=== PATIENT | female | born 1945 | race Caucasian/White ===

== ENCOUNTER 2017-06-27 07:09 | Outpatient (CLI) | payer OTHER ==
[~2017-06-27 07:09] MED LIST: AMBIEN10 MG PO; ATARAX50 MG PO; CALCIO; COZAAR50 MG; GLUCOSAMINE; HYDROCHLOROTHIAZIDE; LIPITOR40 MG PO; MULTIVITAMINS; NABUMETONE500 MG PO; PERCOCET 5/3251 TAB PO; PREVACID30 M1; ROBAXIN500 MG; SKELAXIN800 MG PO
== END 2017-06-27 08:00 | disposition home or self-care (01) ==
LOC: NUCLEAR 07:09
DX: R10.9 Unspecified abdominal pain (principal); D64.0 Hereditary sideroblastic anemia; R50.9 Fever, unspecified
CPT/HCPCS: 78802; A9556

== ENCOUNTER 2018-02-06 07:53 | Outpatient (CLI) | payer OTHER | END 2018-02-06 08:05 | disposition home or self-care (01) | LOC: SONOGRAMA 07:53 | DX: M46.90 Unspecified inflammatory spondylopathy, site unspecified (principal); M50.90 Cervical disc disorder, unspecified, unspecified cervical region; M06.4 Inflammatory polyarthropathy; M51.26 Other intervertebral disc displacement, lumbar region; M71.50 Other bursitis, not elsewhere classified, unspecified site; M75.30 Calcific tendinitis of unspecified shoulder; M19.149 Post-traumatic osteoarthritis, unspecified hand ==

== ENCOUNTER 2018-03-14 13:14 | Outpatient (CLI) | payer OTHER | END 2018-03-14 13:25 | disposition home or self-care (01) | LOC: RAD 13:14 | DX: M25.561 Pain in right knee (principal); M25.562 Pain in left knee ==

== ENCOUNTER → 2018-03-14 | Emergency (ER) | payer OTHER ==
[~2018-03-14] VITALS: Ht 157.5 cm; Wt 68.0 kg
[~2018-03-14] MED LIST changes: +ATACAND16 MG; +NEURONTIN300 MG; +SYNTHROID50 MCG
== END | disposition left against medical advice (07) ==
LOC: ER 08:59
DX: Z53.20 Procedure and treatment not carried out because of patient's decision for unspecified reasons (principal)

== ENCOUNTER 2018-03-15 13:55 | Outpatient (CLI) | payer OTHER | END 2018-03-15 14:17 | disposition home or self-care (01) | LOC: MRI 13:55 | DX: M25.561 Pain in right knee (principal) | CPT/HCPCS: 73718 ==

== ENCOUNTER 2018-08-24 09:02 | Outpatient (CLI) | payer OTHER | END 2018-08-24 14:52 | disposition home or self-care (01) | LOC: TOM 09:02 | DX: R42 Dizziness and giddiness (principal) ==

== ENCOUNTER 2018-09-03 10:11 | Outpatient (CLI) | payer OTHER | END 2018-09-03 12:17 | disposition home or self-care (01) | LOC: RAD 10:11 | DX: M46.90 Unspecified inflammatory spondylopathy, site unspecified (principal); M50.90 Cervical disc disorder, unspecified, unspecified cervical region; M06.4 Inflammatory polyarthropathy; G56.00 Carpal tunnel syndrome, unspecified upper limb; M51.26 Other intervertebral disc displacement, lumbar region; M71.50 Other bursitis, not elsewhere classified, unspecified site; M75.30 Calcific tendinitis of unspecified shoulder; M17.9 Osteoarthritis of knee, unspecified; M17.11 Unilateral primary osteoarthritis, right knee; M70.51 Other bursitis of knee, right knee; M25.241 Flail joint, right hand ==

== ENCOUNTER 2018-10-15 10:05 | Outpatient (CLI) | payer OTHER | END 2018-10-15 15:25 | disposition home or self-care (01) | LOC: RAD 10:05 | DX: I10 Essential (primary) hypertension (principal) ==

== ENCOUNTER 2018-12-07 19:01 | Emergency (ER) | payer OTHER ==
[~2018-12-07] VITALS: Ht 157.5 cm; Wt 68.0 kg
== END 2018-12-07 21:28 | disposition home or self-care (01) ==
LOC: ER 19:01
DX: R06.02 Shortness of breath (principal)

== ENCOUNTER 2019-01-19 09:32 | Outpatient (CLI) | payer OTHER | END 2019-01-19 09:41 | disposition home or self-care (01) | LOC: RAD 09:32 | DX: M75.32 Calcific tendinitis of left shoulder (principal); M19.012 Primary osteoarthritis, left shoulder ==

== ENCOUNTER 2019-01-30 09:31 | Outpatient (CLI) | payer OTHER | END 2019-01-30 09:40 | disposition home or self-care (01) | LOC: SONOGRAMA 09:31 | DX: E04.8 Other specified nontoxic goiter (principal) ==

== ENCOUNTER 2019-03-21 17:17 | Emergency (ER) | payer OTHER ==
[~2019-03-21] VITALS: Ht 157.5 cm; Wt 68.0 kg
== END 2019-03-22 00:23 ==
LOC: ER 17:17
DX: R42 Dizziness and giddiness (principal); N39.0 Urinary tract infection, site not specified

== ENCOUNTER → 2019-03-25 | Outpatient (CLI) | payer OTHER | END | disposition home or self-care (01) | LOC: RAD 16:18 | DX: M12.88 Other specific arthropathies, not elsewhere classified, other specified site (principal); M46.02 Spinal enthesopathy, cervical region; M54.89 Other dorsalgia ==

== ENCOUNTER 2019-05-04 06:38 | Emergency (ER) | payer OTHER ==
[~2019-05-04] VITALS: Ht 157.5 cm; Wt 68.0 kg
== END 2019-05-04 12:51 | disposition home or self-care (01) ==
LOC: ER 06:38
DX: R42 Dizziness and giddiness (principal)

== ENCOUNTER 2019-06-06 08:21 | Outpatient (CLI) | payer OTHER | END 2019-06-06 08:26 | disposition home or self-care (01) | LOC: MRI 08:21 | DX: I63.30 Cerebral infarction due to thrombosis of unspecified cerebral artery (principal) | CPT/HCPCS: 70551 ==

== ENCOUNTER 2019-06-18 08:26 | Outpatient (CLI) | payer OTHER | END 2019-06-18 09:01 | disposition home or self-care (01) | LOC: NUCLEAR 08:26 | DX: M46.90 Unspecified inflammatory spondylopathy, site unspecified (principal); M50.90 Cervical disc disorder, unspecified, unspecified cervical region; M06.4 Inflammatory polyarthropathy; G56.00 Carpal tunnel syndrome, unspecified upper limb; M51.26 Other intervertebral disc displacement, lumbar region; M71.50 Other bursitis, not elsewhere classified, unspecified site; M75.30 Calcific tendinitis of unspecified shoulder; R70.0 Elevated erythrocyte sedimentation rate; M25.9 Joint disorder, unspecified; M06.9 Rheumatoid arthritis, unspecified | CPT/HCPCS: 78306; A9503 ==

== ENCOUNTER 2019-08-01 08:05 | Outpatient (CLI) | payer OTHER | END 2019-08-01 15:14 | disposition home or self-care (01) | LOC: TOM 08:05 | DX: M46.90 Unspecified inflammatory spondylopathy, site unspecified (principal); M50.90 Cervical disc disorder, unspecified, unspecified cervical region; M06.4 Inflammatory polyarthropathy; G56.00 Carpal tunnel syndrome, unspecified upper limb; M51.26 Other intervertebral disc displacement, lumbar region; M71.50 Other bursitis, not elsewhere classified, unspecified site; M75.30 Calcific tendinitis of unspecified shoulder; K50.00 Crohn's disease of small intestine without complications ==

== ENCOUNTER 2019-08-02 08:48 | Outpatient (CLI) | payer OTHER | END 2019-08-02 08:52 | disposition home or self-care (01) | LOC: SONOGRAMA 08:48 | DX: M46.90 Unspecified inflammatory spondylopathy, site unspecified (principal); M50.90 Cervical disc disorder, unspecified, unspecified cervical region; M06.4 Inflammatory polyarthropathy; M51.26 Other intervertebral disc displacement, lumbar region; M71.50 Other bursitis, not elsewhere classified, unspecified site; M75.30 Calcific tendinitis of unspecified shoulder; K57.00 Diverticulitis of small intestine with perforation and abscess without bleeding; K50.00 Crohn's disease of small intestine without complications ==

== ENCOUNTER 2019-08-30 12:12 | Outpatient (CLI) | payer OTHER | END 2019-08-30 12:14 | disposition home or self-care (01) | LOC: RAD 12:12 | DX: M54.2 Cervicalgia (principal); M17.0 Bilateral primary osteoarthritis of knee ==

== ENCOUNTER 2019-09-05 14:07 | Outpatient (CLI) | payer OTHER | END 2019-09-05 14:08 | disposition home or self-care (01) | LOC: NUCLEAR 14:07 | DX: M81.0 Age-related osteoporosis without current pathological fracture (principal) ==

== ENCOUNTER 2020-01-31 08:44 | Outpatient (CLI) | payer OTHER | END 2020-01-31 09:22 | disposition home or self-care (01) | LOC: MRI 08:44 | PROVIDERS: ATTEND Specialist | DX: M17.11 Unilateral primary osteoarthritis, right knee (principal); M46.90 Unspecified inflammatory spondylopathy, site unspecified; M50.90 Cervical disc disorder, unspecified, unspecified cervical region; M06.4 Inflammatory polyarthropathy; G56.00 Carpal tunnel syndrome, unspecified upper limb; M51.26 Other intervertebral disc displacement, lumbar region; M71.50 Other bursitis, not elsewhere classified, unspecified site; M75.30 Calcific tendinitis of unspecified shoulder; M25.241 Flail joint, right hand; S83.201A Bucket-handle tear of unspecified meniscus, current injury, left knee, initial encounter | CPT/HCPCS: 73721 ==

== ENCOUNTER 2020-04-01 08:24 | Outpatient (CLI) | payer OTHER | END 2020-04-01 08:28 | disposition home or self-care (01) | LOC: SONOGRAMA 08:24 | PROVIDERS: ATTEND Specialist | DX: G56.03 Carpal tunnel syndrome, bilateral upper limbs (principal); M25.532 Pain in left wrist; M25.531 Pain in right wrist; M06.4 Inflammatory polyarthropathy; M51.26 Other intervertebral disc displacement, lumbar region; M71.50 Other bursitis, not elsewhere classified, unspecified site; M50.90 Cervical disc disorder, unspecified, unspecified cervical region; M75.30 Calcific tendinitis of unspecified shoulder; E04.1 Nontoxic single thyroid nodule ==

== ENCOUNTER 2020-08-05 09:12 | Outpatient (CLI) | payer OTHER | END 2020-08-05 09:21 | disposition home or self-care (01) | LOC: SONOGRAMA 09:12 → MAMO-SONO 09:30 | PROVIDERS: ATTEND Specialist | DX: S83.221A Peripheral tear of medial meniscus, current injury, right knee, initial encounter (principal); M71.21 Synovial cyst of popliteal space [Baker], right knee; M17.11 Unilateral primary osteoarthritis, right knee; S83.421A Sprain of lateral collateral ligament of right knee, initial encounter ==

== ENCOUNTER 2020-08-17 10:39 | Outpatient (CLI) | payer OTHER | END 2020-08-17 10:50 | disposition home or self-care (01) | LOC: MRI 10:39 | PROVIDERS: ATTEND Specialist | DX: M51.36 Other intervertebral disc degeneration, lumbar region (principal) | CPT/HCPCS: 72148 ==

== ENCOUNTER 2020-08-24 11:35 | Outpatient (CLI) | payer OTHER | END 2020-08-24 11:46 | disposition home or self-care (01) | LOC: MRI 11:35 | PROVIDERS: ATTEND Physical Medicine & Rehabilitation | DX: M17.11 Unilateral primary osteoarthritis, right knee (principal); S83.241A Other tear of medial meniscus, current injury, right knee, initial encounter | CPT/HCPCS: 73721 ==

== ENCOUNTER 2020-09-07 15:44 | Outpatient (CLI) | payer OTHER | END 2020-09-07 15:49 | disposition home or self-care (01) | LOC: MAMO-SONO 15:44 | PROVIDERS: ATTEND Physical Medicine & Rehabilitation | DX: M25.511 Pain in right shoulder (principal); M75.31 Calcific tendinitis of right shoulder ==

== ENCOUNTER 2020-10-19 07:31 | Outpatient (CLI) | payer OTHER | END 2020-10-19 07:52 | disposition home or self-care (01) | LOC: SONOGRAMA 07:31 | PROVIDERS: ATTEND Internal Medicine Gastroenterology | DX: K76.0 Fatty (change of) liver, not elsewhere classified (principal); R16.0 Hepatomegaly, not elsewhere classified ==

== ENCOUNTER 2020-12-02 10:45 | Outpatient (CLI) | payer OTHER | END 2020-12-02 10:58 | disposition home or self-care (01) | LOC: RAD 10:45 | PROVIDERS: ATTEND Physical Medicine & Rehabilitation | DX: M17.0 Bilateral primary osteoarthritis of knee (principal) ==

== ENCOUNTER 2020-12-23 13:08 | Outpatient (CLI) | payer OTHER | END 2020-12-23 14:29 | disposition home or self-care (01) | LOC: RAD 13:08 | PROVIDERS: ATTEND Internal Medicine Pulmonary Disease | DX: J01.90 Acute sinusitis, unspecified (principal); R05 Cough ==

== ENCOUNTER 2021-04-01 07:34 | Outpatient (CLI) | payer OTHER | END 2021-04-01 07:43 | disposition home or self-care (01) | LOC: SONOGRAMA 07:34 | PROVIDERS: ATTEND Internal Medicine Endocrinology, Diabetes & Metabolism | DX: I10 Essential (primary) hypertension (principal); R73.03 Prediabetes; E04.1 Nontoxic single thyroid nodule ==

== ENCOUNTER 2021-06-01 07:53 | Outpatient (CLI) | payer OTHER | END 2021-06-01 07:54 | disposition home or self-care (01) | LOC: LAB 07:53 | PROVIDERS: ATTEND Internal Medicine Cardiovascular Disease | DX: J02.8 Acute pharyngitis due to other specified organisms (principal); N39.0 Urinary tract infection, site not specified; B96.89 Other specified bacterial agents as the cause of diseases classified elsewhere ==

== ENCOUNTER 2021-08-29 13:40 | Emergency (ER) | payer OTHER ==
[~2021-08-29] VITALS: Ht 157.5 cm; Wt 68.0 kg
== END 2021-08-29 17:59 | disposition home or self-care (01) ==
LOC: ER 13:40
DX: R55 Syncope and collapse (principal); R42 Dizziness and giddiness; F41.9 Anxiety disorder, unspecified; Z86.79 Personal history of other diseases of the circulatory system

== ENCOUNTER 2021-09-03 09:49 | Outpatient (CLI) | payer OTHER ==
[2021-09-03] MEDS ORDERED: ZOFRAN8 MG PO (22:03)
[2021-09-03] MEDS ORDERED: DRAMAMINE LESS25 MG PO (22:03)
== END 2021-09-03 11:24 | disposition home or self-care (01) ==
LOC: RAD 09:49
PROVIDERS: ATTEND Specialist
DX: M26.619 Adhesions and ankylosis of temporomandibular joint, unspecified side (principal); S22.31XA Fracture of one rib, right side, initial encounter for closed fracture

== ENCOUNTER 2021-09-03 20:36 | Emergency (ER) | payer OTHER ==
[~2021-09-03] VITALS: Ht 162.6 cm; Wt 68.0 kg
[2021-09-03] MEDS ORDERED: DRAMAMINE LESS25 MG PO (22:03)
[2021-09-03] MEDS ORDERED: ZOFRAN8 MG PO (22:03)
== END 2021-09-03 22:08 | disposition home or self-care (01) ==
LOC: ER 20:36
DX: R42 Dizziness and giddiness (principal); E03.9 Hypothyroidism, unspecified; I10 Essential (primary) hypertension

== ENCOUNTER 2021-10-16 09:17 | Emergency (ER) | payer OTHER ==
[~2021-10-16] VITALS: Ht 157.5 cm; Wt 68.0 kg
[~2021-10-16 09:17] MED LIST changes: +DRAMAMINE LESS25 MG PO; +ZOFRAN8 MG PO
[2021-10-16] MEDS ORDERED: CANDESARTAN CILE8 MG (09:40)
[2021-10-16] MEDS ORDERED: RESTORIL30 M1 (09:41)
== END 2021-10-16 16:48 | disposition home or self-care (01) ==
LOC: ER 09:17
DX: N39.0 Urinary tract infection, site not specified (principal); K52.9 Noninfective gastroenteritis and colitis, unspecified

== ENCOUNTER 2021-11-12 12:39 | Outpatient (CLI) | payer OTHER ==
[~2021-11-12 12:39] MED LIST changes: +CANDESARTAN CILE8 MG; +RESTORIL30 M1
== END 2021-11-12 12:48 | disposition home or self-care (01) ==
LOC: SONOGRAMA 12:39
PROVIDERS: ATTEND Specialist
DX: N39.0 Urinary tract infection, site not specified (principal)

== ENCOUNTER 2021-12-15 08:50 | Outpatient (CLI) | payer OTHER | END 2021-12-15 08:56 | disposition home or self-care (01) | LOC: RAD 08:50 | PROVIDERS: ATTEND Specialist | DX: M51.36 Other intervertebral disc degeneration, lumbar region (principal); M17.0 Bilateral primary osteoarthritis of knee ==

== ENCOUNTER 2021-12-15 09:41 | Outpatient (CLI) | payer OTHER | END 2021-12-15 09:44 | disposition home or self-care (01) | LOC: NUCLEAR 09:41 | PROVIDERS: ATTEND Specialist | DX: M81.0 Age-related osteoporosis without current pathological fracture (principal) ==

== ENCOUNTER 2022-01-26 14:27 | Outpatient (CLI) | payer OTHER | END 2022-01-26 14:31 | disposition home or self-care (01) | LOC: RAD 14:27 | PROVIDERS: ATTEND Internal Medicine Cardiovascular Disease | DX: M12.9 Arthropathy, unspecified (principal); M46.48 Discitis, unspecified, sacral and sacrococcygeal region ==

== ENCOUNTER → 2022-09-21 | Outpatient (CLI) | payer OTHER | END | disposition home or self-care (01) | LOC: SONOGRAMA 08:39 | DX: K76.1 Chronic passive congestion of liver (principal); N18.30 Chronic kidney disease, stage 3 unspecified; R73.03 Prediabetes; I11.0 Hypertensive heart disease with heart failure ==

== ENCOUNTER 2022-10-11 10:21 | Outpatient (CLI) | payer OTHER | END 2022-10-11 10:30 | disposition home or self-care (01) | LOC: RAD 10:21 | PROVIDERS: ATTEND Specialist | DX: M16.0 Bilateral primary osteoarthritis of hip (principal); M46.1 Sacroiliitis, not elsewhere classified ==

== ENCOUNTER 2023-02-24 08:47 | Outpatient (CLI) | payer OTHER | END 2023-02-24 08:56 | disposition home or self-care (01) | LOC: RAD 08:47 | PROVIDERS: ATTEND Internal Medicine Gastroenterology | DX: R16.2 Hepatomegaly with splenomegaly, not elsewhere classified (principal); M17.0 Bilateral primary osteoarthritis of knee ==

== ENCOUNTER 2023-07-19 09:22 | Outpatient (CLI) | payer OTHER | END 2023-07-19 12:57 | disposition home or self-care (01) | LOC: SONOGRAMA 09:22 | DX: M46.90 Unspecified inflammatory spondylopathy, site unspecified (principal); M50.90 Cervical disc disorder, unspecified, unspecified cervical region; M06.4 Inflammatory polyarthropathy; G56.00 Carpal tunnel syndrome, unspecified upper limb; M51.26 Other intervertebral disc displacement, lumbar region; M75.30 Calcific tendinitis of unspecified shoulder; M17.11 Unilateral primary osteoarthritis, right knee; M70.51 Other bursitis of knee, right knee; M76.51 Patellar tendinitis, right knee ==

== ENCOUNTER 2024-01-10 11:53 | Outpatient (CLI) | payer OTHER | END 2024-01-10 11:54 | disposition home or self-care (01) | LOC: NUCLEAR 11:53 | PROVIDERS: ATTEND Specialist | DX: M81.0 Age-related osteoporosis without current pathological fracture (principal) ==

== ENCOUNTER 2024-02-09 09:24 | Outpatient (CLI) | payer OTHER | END 2024-02-09 09:29 | disposition home or self-care (01) | LOC: SONOGRAMA 09:24 → RAD 09:24 → SONOGRAMA 09:29 | PROVIDERS: ATTEND Internal Medicine Cardiovascular Disease | DX: E03.9 Hypothyroidism, unspecified (principal); M75.31 Calcific tendinitis of right shoulder ==

== ENCOUNTER 2024-02-22 10:01 | Outpatient (CLI) | payer OTHER | END 2024-02-22 10:04 | disposition home or self-care (01) | LOC: SONOGRAMA 10:01 | PROVIDERS: ATTEND Pathology Anatomic Pathology & Clinical Pathology | DX: D34 Benign neoplasm of thyroid gland (principal); E07.89 Other specified disorders of thyroid; E04.1 Nontoxic single thyroid nodule ==

== ENCOUNTER 2024-03-19 09:18 | Outpatient (CLI) | payer OTHER | END 2024-03-19 09:27 | disposition home or self-care (01) | LOC: SONOGRAMA 09:18 | PROVIDERS: ATTEND Specialist | DX: M46.90 Unspecified inflammatory spondylopathy, site unspecified (principal); M50.90 Cervical disc disorder, unspecified, unspecified cervical region; M06.4 Inflammatory polyarthropathy; G56.00 Carpal tunnel syndrome, unspecified upper limb; M51.26 Other intervertebral disc displacement, lumbar region; M71.50 Other bursitis, not elsewhere classified, unspecified site; M75.30 Calcific tendinitis of unspecified shoulder; I10 Essential (primary) hypertension; N18.9 Chronic kidney disease, unspecified; N39.9 Disorder of urinary system, unspecified; M75.31 Calcific tendinitis of right shoulder; M75.101 Unspecified rotator cuff tear or rupture of right shoulder, not specified as traumatic; M17.0 Bilateral primary osteoarthritis of knee; M76.51 Patellar tendinitis, right knee ==

== ENCOUNTER 2024-08-07 08:18 | Outpatient (CLI) | payer OTHER | END 2024-08-07 08:33 | disposition home or self-care (01) | LOC: SONOGRAMA 08:18 | PROVIDERS: ATTEND General Practice | DX: M17.11 Unilateral primary osteoarthritis, right knee (principal); M76.51 Patellar tendinitis, right knee; M70.51 Other bursitis of knee, right knee ==

== ENCOUNTER 2024-10-02 14:05 | Outpatient (CLI) | payer OTHER | END 2024-10-02 14:16 | disposition home or self-care (01) | LOC: MRI 14:05 | PROVIDERS: ATTEND Psychiatry & Neurology Clinical Neurophysiology | DX: H70.92 Unspecified mastoiditis, left ear (principal) | CPT/HCPCS: 70551 ==

== ENCOUNTER 2024-10-24 08:52 | Outpatient (CLI) | payer OTHER | END 2024-10-24 08:55 | disposition home or self-care (01) | LOC: SONOGRAMA 08:52 | PROVIDERS: ATTEND General Practice | DX: M46.90 Unspecified inflammatory spondylopathy, site unspecified (principal); M50.90 Cervical disc disorder, unspecified, unspecified cervical region; M06.4 Inflammatory polyarthropathy; G56.00 Carpal tunnel syndrome, unspecified upper limb; M51.26 Other intervertebral disc displacement, lumbar region; M71.50 Other bursitis, not elsewhere classified, unspecified site; M75.30 Calcific tendinitis of unspecified shoulder; M75.31 Calcific tendinitis of right shoulder; M19.011 Primary osteoarthritis, right shoulder; M75.51 Bursitis of right shoulder; M25.461 Effusion, right knee ==